=== PATIENT | female | born 1945 | race Caucasian/White ===

== ENCOUNTER 2025-06-19 11:38 | Emergency (ER) | payer MEDICARE, OTHER, SELFPAY ==
[2025-06-19 11:41] VITALS: BP 145/89; PULSE 65; RESP 18; TEMP 37.3; O2SAT 100
[2025-06-19 11:49] VITALS: PULSE 60; RESP 22; O2SAT 99; BMI 44.2
--- NOTE | 2025-06-19 12:12 | EKG_ITS ---
[facility] Test Date: 2025-06-19 Pat Name: CHARLEEN FINLEY Department: Room: - Gender: Female Career Development Coordinator/Teacher: : [id number] Requested By: Isis Marroquin Order Number: [id number] Reading MD: Isis Marroquin Measurements Intervals [place] Rate: 62 P: 28 CT: 188 QRS: 25 QRSD: 79 T: 40 QT: 390 QTc: 397 Interpretive Statements SINUS RHYTHM Compared to ECG 01/10/2018 13:21:48 Sinus bradycardia no longer present /store/S0/[id number].pdf
--- NOTE | 2025-06-19 13:18 | XR_ITS ---
Examination: AP chest single view TECHNIQUE: AP portable upright chest single view Date and time: June 19, 2025, 1343 hours, comparison August 10, 2022 INDICATIONS: Chest pain short of breath today FINDINGS: Normal heart size Moderate elevation right hemidiaphragm. Mild vascular congestion. No pneumonia or pulmonary edema Prominent osteopenia IMPRESSION: No pneumonia or pulmonary edema Mild vascular congestion
[2025-06-19 13:54] LABS: Basophils # (Auto) 0.0 Thou/mm3 (0.0-0.2); Basophils % (Auto) 1 % (0-2.5); Eosinophils # (Auto) 0.2 Thou/mm3 (0.0-0.5); Eosinophils % (Auto) 4 % (0-10); Hematocrit 25.3 % (36.0-46.0); Immature Granulocytes Auto 0.02 Thou/mm3 (0.00-0.00); Lymphocytes # (Auto) 0.7 Thou/mm3 (1.0-4.8); Lymphocytes % (Auto) 13 % (10-50); Mean Corpuscular HGB Conc 31.6 g/dl (31.0-37.0); Mean Corpuscular Hemoglobin 29.6 pg (25.0-35.0); Mean Corpuscular Volume 94 fL (80-100); Monocytes # (Auto) 0.4 Thou/mm3 (0.0-0.8); Monocytes % (Auto) 8 % (0-12); Neutrophils # (Auto) 3.9 Thou/mm3 (1.8-7.7); Neutrophils % (Auto) 74 % (37-80); Nucleated Red Blood Cell # 0.00 Thou/mm3 (0.00-0.00); Nucleated Red Blood Cell % 0 /100 WBC (0); Platelet Count 192 Thou/mm3 (140-440); RDW Standard Deviation 57.0 fL (36.4-46.3); Red Blood Count 2.70 Miln/mm3 (4.00-5.20); White Blood Count 5.3 Thou/mm3 (3.6-11.0)
[2025-06-19 13:58] LABS: Hemoglobin 8.0 g/dL (12.0-16.0)
[2025-06-19] MEDS: MethylPREDNISolone SOD SUCC 62.5 MG/ML 2ML VIAL 125 MG IVP (14:04)
[2025-06-19 14:09] LABS: B-Type Natriuretic Peptide 142 pg/mL (0-100)
[2025-06-19 14:12] LABS: Alanine Aminotransferase 17 U/L (10-49); Albumin, Serum 3.7 gm/dL (3.4-4.8); Albumin/Globulin Ratio 1.9 (1.2-2.2); Alkaline Phosphatase 86 U/L (46-116); Anion Gap 5 (7-16); Aspartate Amino Transferase 31 U/L (0-34); BUN/Creatinine Ratio 20 Ratio (12-20); Bilirubin,Total 0.3 mg/dL (0.3-1.2); Blood Urea Nitrogen 26 mg/dL (9-23); Calcium 8.9 mg/dL (8.3-10.6); Calcium (Corrected) 9.1 mg/dL (8.5-10.1); Carbon Dioxide 27.3 mMol/L (20.0-31.0); Chloride 107 mMol/L (98-107); Creatinine (Component) 1.3 mg/dL (0.6-1.3); Estimated Creatinine Clearance 43.2 mL/min (>60); Globulin 2.0 gm/dL (2.3-3.5); Glucose 93 mg/dL (74-106); Osmolality,Calculated 282 (275-295); Potassium 5.4 mMol/L (3.4-5.1); Sodium 139 mMol/L (136-145); Total Protein 5.7 gm/dL (5.7-8.2); Troponin I < 0.020 ng/mL (0.0-0.045); eGFR 42 See Note
--- NOTE | 2025-06-19 14:16 | EDNOTE_ITS ---
ED SOB =RME/HPI General Chief Complaint: Shortness of Breath/Dyspnea Stated Complaint: SOB Time Seen by Provider: 06/19/25 12:06 Arrival date/time: 06/19/25 11:38 Limitations: no limitations RME / HPI RME / HPI Narrative: 80 year old female with history of hypertension, COPD on 4L nasal cannula (at night), asthma, and chronic bilateral lower extremity edema presents to the ED BIBA from home for evaluation of acute onset shortness of breath today. States she had walked from the restroom to her room when she suddenly began to feel short of breath. Accompanied by palpitations. States she applied her home oxygen without relief, prompting calling 911. Per medics, on the 4L patient was saturating 90% and was increased to 6L with improvement to 99%. Denied any chest pain during that time. Patient additionally reports yesterday, after finding out her banking account had been hacked, she began to feel short of breath accompanied by palpitations that resolved after using her inhaler. Denies any recent illness, fevers, chills, cough, abdominal pain, n/v/d, or urinary symptoms. Patients daughter mentioned she did receive an IM injection of Rocephin 2 days ago for lower extremity skin infection. Wounds are followed by reeling machine operator. Telephone Sales Agent: Dr. Nash Related Data Home Medications ?Medication ?Instructions ?Recorded ?Confirmed ESTROGEN,CON/M-PROGEST ACET 20 mg PO DAILY ##0 4 01/10/18 (PREMPRO 0.625/2.5) Ezetimibe/Simvastatin * (VYTORIN 1 tab PO HS #0 tabs 0 05/27/14 01/10/18 1040 *) fluoxetine 20 mg capsule (Prozac) 20 mg PO BID #0 caps 05/27/14 01/10/18 loratadine 5 mg/5 mL oral solution 5 mg PO DAILY ##0 0 05/27/14 01/10/18 olmesartan 20 mg tablet (Benicar) 20 mg PO QDAY #0 tab s 05/27/14 01/10/18 pantoprazole 40 mg tablet,delayed 40 mg PO BID ##0 12/0501/10/18 release (Protonix) thyroid (pork) 90 mg tablet 90 mg PO QDAY ##30 4 01/10/18 ([place] Thyroid) tizanidine 4 mg tablet (Zanaflex) 4 mg PO QDAY #0 tabs 05/27/14 01/10/18 Previous Rx's ?Medication ?Instructions ?Recorded budesonide-formoterol HFA 160 2 inh inhalation Q12H #1 0.2 grams 01/10/18 mcg-4.5 mcg/actuation aerosol inhaler (Symbicort) albuterol sulfate 90 mcg/actuation 1 puff inhalation Q ID PRN 10/21/21 aerosol inhaler (ProAir HFA) shortness of breath or wh eezing #8.5 grams dexamethasone 6 mg tablet 6 mg PO QDAY #10 tabs (Decadron) Allergies Allergy/AdvReac Type Severity Reaction Status Date / Time morphine AdvReac Mild VOMIT Verified 08/10/22 19:09 Contrast Media Allergy Severe HIVES, Uncoded 08/10/22 19:09 DIFF BREATHING Review of Systems Review of Systems Systems Reviewed: All systems reviewed, normal except as documented Past Medical History Past Medical History CARDIAC: Positive Hypertension RESPIRATORY: Positive Respiratory Disorders, Asthma and Bronchitis Surgical History SURGICAL: Positive of Back Surgery and Hysterectomy Social History SMOKING STATUS: Never smoker ED Exam General Limitations: Present no limitations General appearance: Present alert and in no apparent distress Head Head exam: Present atraumatic Eye Eye exam: Present normal appearance, PERRL and EOMI ENT ENT exam: Present normal exam, normal oropharynx and mucous membranes moist Neck Neck exam: Present normal inspection, full ROM and trachea midline Chest Chest inspection: Present normal inspection and symmetric chest wall rise Respiratory Respiratory exam: Present normal lung sounds bilaterally; Absent respiratory distress, wheezes, stridor or accessory muscle use Cardiovascular Cardiovascular exam: Present regular rate, normal rhythm and normal heart sounds Abdominal Exam Abdominal exam: Present soft; Absent distention, tenderness, guarding or rebound Extremities Exam Extremities exam: Present full ROM and other (chronic bilateral lower extremity swelling that is symmetric from the knee below, wrapped in BILL wrap that the patient and family declined to have removed, both lower extremities have chronic venous stasis changes , 2+ DP pulses symmetric intact ) Neurological Exam Neurological exam: Present alert and oriented X3 Psychiatric Psychiatric exam: Present normal affect and normal mood Skin Skin exam: Present warm, dry, intact and normal color Course Quality Measures none Orders Category Date Time Status Bedside COVID-19 Antigen Test NOW Care 06/19/25 13:18 Completed Bedside Influenza A&B Antigen Test NOW Care 06/19/25 13:18 Completed EKG (ED ONLY) *Do not use* NOW Care 06/19/25 12:12 Completed CXR [XR chest 1V] Stat Exams 06/19/25 13:18 Completed EKG (ED Only) Stat Exams 06/19/25 12:12 Draft BNP [B-Type Natriuretic Peptide] Stat Lab 06/19/25 13:40 Completed CBC Stat Lab 06/19/25 13:40 Completed CMP [Comprehensive Metabolic Panel] Stat Lab 06/19/25 13:40 Completed Troponin I Stat Lab 06/19/25 13:40 Completed Furosemide Inj [Lasix Inj] Med 06/19/25 15:20 Discontinued 40 mg IVP X1 ONE Furosemide [Lasix Inj] Med 06/19/25 15:37 Discontinued 20 mg IVP X1 ONE HYDROcodone/APAP 10/325 [[place] 10/325] Med 06/19/25 15:17 Discontinued 1 tab PO X1 ONE MethylPREDNISolone.* [SoluMEDROL Inj] Med 06/19/25 13:18 Discontinued 125 mg IVP X1 ONE Vital Signs Vital signs: Vital Signs Temperature 99.1 F 06/19/25 11:41 Pulse Rate 65 06/19/25 11:41 Respiratory Rate 18 06/19/25 11:41 Blood Pressure 145/89 H 06/19/25 11:41 Pulse Oximetry (%) 100 06/19/25 11:41 Oxygen Delivery Method Nasal Cannula 06/19/25 11:41 Oxygen Flow Rate 4 06/19/25 11:41 Pulse ox is 98% on room air which is adequate. Shortness of Breath / Dyspnea MDM Narrative MDM Narrative:: Marcella Cortez am scribing for and in the presence of Dr. Clemons. Patient is a 80-year-old female with medical history notable for COPD, on oxygen at home as needed,chronic bilateral lower extremity edema that is in the emergency department concerns for acute episode of shortness of breath, and palpitations. Vital signs and exam as listed. Concern for ACS arrhythmia electrolyte abnormality CHF exacerbation viral syndrome among others. Ordered labs EKG chest x-ray. Patient right now is satting at 100% on room air, not in distress, not tachycardia, GCS15. Patient also concerned that she may have had an allergic reaction to her antibiotic that she received a few days ago, however, no rashes,sob,stridor, abd pain. Given her swelling of her legs I recommend b/l LE u/s however, patient and daughter declined exam of her lower extremities and did not want us to remove her wound care bandages that were placed by her providers HUMANITIES PROFESSOR. Declined further assessment of extremities. Advised patient and daughter that I have not ruled out life threatening pathology related to her LE's including DVT or necrotizing skin infections among others. EKG performed 12:22p sinus rhythm, nl int, no st elev or dep, not a cardiac alert, Labs with evidence of hemoglobin 8, however in in 2021 hemoglobin was 10. No recent assessments on file. Patient is not taking blood thinners, denies any hematemesis hemoptysis hematuria melena or bloody stools. No signs of bleeding. Patient has a potassium of 5.4, our upper limit of normal is 5.1. Will provide her medications for management of hyperkalemia. Creatinine is normal, BUN is 26. No transaminitis, troponin not elevated, BNP is 142, prior BNP is in the 70s. Chest x-ray with mild vascular congestion. Patient is COVID and flu negative. Given patient creatinine is not elevated and renal function is near her baseline we will offer her diuresis and also consult her commercial crabber. 3:20p I discussed renal labs, cxr, and presentation with commercial crabber Dr. Nash. He advised giving the patient 40mg Lasix and send home with instructions for her to follow up with him in office next week. 3:35p Discussed plan and discussion I had with patient's commercial crabber, with both the patient and her daughter.. Were in agreement with plan, however, requested a lower dose of lasix. As such 20mg of furosemide was provided. Patient data External records reviewed:: [facility] previous records and EMS form Clinical information provided by:: patient and EMS Social determinants that could affect healthcare access:: none Patient has the following chronic illnesses:: HTN, chronic bilateral lower extremity edema How is presenting disease/condition affected by chronic disease/condition?: exacerbated by Evaluation data The following diagnostics were reviewed and interpreted by me:: lab results, radiology exam(s) and EKG tracing(s) Lab and/or radiology exams considered but not ordered:: None Interpretation Summary: See MDM Medications / Prescriptions Medications or Prescriptions considered but not ordered:: None Medication administrations:: Medication Administration History Discontinued Medications Hydrocodone Bitart/Acetaminophen (Hydrocodone/Apap 10/325 Tab) 1 tab PO X1 ONE Stop: 06/19/25 15:18 Last Admin: 06/19/25 15:28 Dose: 1 tab Documented By: OA Furosemide (Furosemide Inj 10 Mg/Ml 4ml Vial) 40 mg IVP X1 ONE Stop: 06/19/25 15:21 Last Admin: 06/19/25 16:31 Dose: Not Given Documented By: DB Non-Admin Reason: Cancelled by Provider Furosemide (Furosemide Inj 10 Mg/Ml Vial 2 Ml) 20 mg IVP X1 ONE Stop: 06/19/25 15:38 Last Admin: 06/19/25 15:59 Dose: 20 mg Documented By: AA Methylprednisolone Sodium Succinate (Methylprednisolone Sod Succ 62.5 Mg/Ml 2ml Vial) 125 mg IVP X1 ONE Stop: 06/19/25 13:19 Last Admin: 06/19/25 14:04 Dose: 125 mg Documented By: FRED See above Consultations Consultation(s) initiated? (list below): Yes Consultation #1 (Physician, Specialty, Details): See MDM Diagnosis Shortness of Breath Differential Diagnosis: other (See MDM ) Most likely diagnosis given after review of the tests above:: Pulmonary vascular congestion Bilateral edema of lower extremity Admission Indicated Admission indicated?: not indicated Admission Request Was there a request for admission?: No Disposition Plan Disposition Plan: Discharge Discharge Attestation Discharge Attestation: The patient and all family members were given an opportunity to ask questions and understood the discharge instructions. Discharge instructions specifically effects, indications for sooner follow up or return to the emergency department, and the expected course of current diagnosis. Patient condition: Stable Discharge Plan Plan Patient Disposition: HOME (Self Care) Prescriptions/Referrals Prescriptions/Med Rec: No Action loratadine 5 MG/5 ML syrup 5 mg PO DAILY Qty: 0 tizanidine [Zanaflex] 4 MG tablet 4 mg PO QDAY Qty: 0 pantoprazole [Protonix] 40 MG tablet,delayed release (DR/EC) 40 mg PO BID Qty: 0 Patient Comments: TO SUPPRESS GASTRIC SECRETIONS fluoxetine [Prozac] 20 MG capsule 20 mg PO BID Qty: 0 olmesartan [Benicar] 20 MG tablet 20 mg PO QDAY Qty: 0 thyroid (pork) [[place] Thyroid] 90 MG tablet 90 mg PO QDAY Qty: 30 ESTROGEN,CON/M-PROGEST ACET (PREMPRO 0.625/2.5) 1 TAB tablet 20 mg PO DAILY Qty: 0 Ezetimibe/Simvastatin * (VYTORIN 10/40 *) 1 TAB tablet 1 tab PO HS Qty: 0 budesonide-formoterol [Symbicort] 160-4.5 mcg/actuation HFA aerosol inhaler 2 inh INH Q12H Qty: 10.2 0RF dexamethasone [Decadron] 6 mg tablet 6 mg PO QDAY Qty: 10 0RF albuterol sulfate [ProAir HFA] 90 mcg/actuation HFA aerosol inhaler 1 puff inhalation QID PRN (Reason: shortness of breath or wheezing) Qty: 8.5 0RF Referrals: Roverto Moncada, PONY RIDE ATTENDANT [Primary Care Provider] - In 1 week Problem List Clinical Impression: Pulmonary vascular congestion, Bilateral edema of lower extremity Patient/Caregiver Discharge Instructions Education Materials: Taking a Diuretic Additional Instructions: Please follow-up with your primary care doctor within 1 to 2 days as well as your commercial crabber in the upcoming week. We discussed your entire case, labs EKG chest x-ray and symptom presentation with your commercial crabber. He has recommended that we provide you a dose of diuresis here, and requested that you follow-up in his clinic next week. Print Language: Cambodian Stand Alone Forms: Sheila Carvajal Info., Patient Portal Info Letter
--- NOTE | 2025-06-19 14:16 | PD.EDSOB ---
ED SOB =RME/HPI General Chief Complaint: Shortness of Breath/Dyspnea Stated Complaint: SOB Time Seen by Provider: 06/19/25 12:06 Arrival date/time: 06/19/25 11:38 Related Data Home Medications ?Medication ?Instructions ?Recorded ?Confirmed ESTROGEN,CON/M-PROGEST ACET 20 mg PO DAILY ##0 05/27/14 01/10/18 (PREMPRO 0.625/2.5) Ezetimibe/Simvastatin * (VYTORIN 1 tab PO HS #0 tabs 05/27/14 01/10/18 10/40 *) fluoxetine 20 mg capsule (Prozac) 20 mg PO BID #0 caps 05/27/14 01/10/18 loratadine 5 mg/5 mL oral solution 5 mg PO DAILY ##0 05/27/14 01/10/18 olmesartan 20 mg tablet (Benicar) 20 mg PO QDAY #0 tabs 05/27/14 01/10/18 pantoprazole 40 mg tablet,delayed 40 mg PO BID ##0 05/27/14 01/10/18 release (Protonix) thyroid (pork) 90 mg tablet 90 mg PO QDAY ##30 05/27/14 01/10/18 ([place] Thyroid) tizanidine 4 mg tablet (Zanaflex) 4 mg PO QDAY #0 tabs 05/27/14 01/10/18 Previous Rx's ?Medication ?Instructions ?Recorded budesonide-formoterol HFA 160 2 inh inhalation Q12H #10.2 grams 01/10/18 mcg-4.5 mcg/actuation aerosol inhaler (Symbicort) albuterol sulfate 90 mcg/actuation 1 puff inhalation QID PRN 10/21/21 aerosol inhaler (ProAir HFA) shortness of breath or wheezing #8.5 grams dexamethasone 6 mg tablet 6 mg PO QDAY #10 tabs 10/21/21 (Decadron) Allergies Allergy/AdvReac Type Severity Reaction Status Date / Time morphine AdvReac Mild VOMIT Verified 08/10/22 19:09 Contrast Media Allergy Severe HIVES, Uncoded 08/10/22 19:09 DIFF BREATHING Course Orders Category Date Time Status Bedside COVID-19 Antigen Test NOW Care 06/19/25 13:18 Active Bedside Influenza A&B Antigen Test NOW Care 06/19/25 13:18 Completed EKG (ED ONLY) *Do not use* NOW Care 06/19/25 12:12 Completed CXR [XR chest 1V] Stat Exams 06/19/25 13:18 Completed EKG (ED Only) Stat Exams 06/19/25 12:12 Draft BNP [B-Type Natriuretic Peptide] Stat Lab 06/19/25 13:40 Completed CBC Stat Lab 06/19/25 13:40 Completed CMP [Comprehensive Metabolic Panel] Stat Lab 06/19/25 13:40 Completed Troponin I Stat Lab 06/19/25 13:40 Completed MethylPREDNISolone.* [SoluMEDROL Inj] Med 06/19/25 13:18 Discontinued 125 mg IVP X1 ONE Vital Signs Vital signs: Vital Signs Temperature 99.1 F 06/19/25 11:41 Pulse Rate 65 06/19/25 11:41 Respiratory Rate 18 06/19/25 11:41 Blood Pressure 145/89 H 06/19/25 11:41 Pulse Oximetry (%) 100 06/19/25 11:41 Oxygen Delivery Method Nasal Cannula 06/19/25 11:41 Oxygen Flow Rate 4 06/19/25 11:41 Shortness of Breath / Dyspnea MDM Narrative MDM Narrative:: Patient is a 80-year-old female with medical history notable for COPD, on oxygen at home as needed not consistently, bilateral lower extremity edema that is in the emergency department concerns for acute episode of shortness of breath, and palpitations. Vital signs and exam as listed. Concern for ACS arrhythmia electrolyte abnormality CHF exacerbation viral syndrome among others. Ordered labs EKG chest x-ray. Patient right now is satting at 100% on room air. Labs with evidence of hemoglobin 8, however in in 2021 hemoglobin was 10. Patient is not taking blood thinners, denies any hematemesis hemoptysis hematuria melena or bloody stools. No signs of bleeding anywhere. Patient has a potassium of 5.4, our upper limit of normal is 5.1. Will provide her medications for management of hyperkalemia. Creatinine is normal, BUN is 26. No transaminitis, troponin not elevated, BNP is 142, prior BNP is in the 70s. Chest x-ray with mild vascular congestion. Patient is COVID and flu negative. Given patient creatinine is not elevated and renal function is near her baseline we will offer her diuresis and also consult her senior air director. Medications / Prescriptions Medication administrations:: Medication Administration History Discontinued Medications Methylprednisolone Sodium Succinate (Methylprednisolone Sod Succ 62.5 Mg/Ml 2ml Vial) 125 mg IVP X1 ONE Stop: 06/19/25 13:19 Last Admin: 06/19/25 14:04 Dose: 125 mg Documented By: FRED Discharge Plan Prescriptions/Referrals Prescriptions/Med Rec: No Action loratadine 5 MG/5 ML syrup 5 mg PO DAILY Qty: 0 tizanidine [Zanaflex] 4 MG tablet 4 mg PO QDAY Qty: 0 pantoprazole [Protonix] 40 MG tablet,delayed release (DR/EC) 40 mg PO BID Qty: 0 Patient Comments: TO SUPPRESS GASTRIC SECRETIONS fluoxetine [Prozac] 20 MG capsule 20 mg PO BID Qty: 0 olmesartan [Benicar] 20 MG tablet 20 mg PO QDAY Qty: 0 thyroid (pork) [[place] Thyroid] 90 MG tablet 90 mg PO QDAY Qty: 30 ESTROGEN,CON/M-PROGEST ACET (PREMPRO 0.625/2.5) 1 TAB tablet 20 mg PO DAILY Qty: 0 Ezetimibe/Simvastatin * (VYTORIN 10/40 *) 1 TAB tablet 1 tab PO HS Qty: 0 budesonide-formoterol [Symbicort] 160-4.5 mcg/actuation HFA aerosol inhaler 2 inh INH Q12H Qty: 10.2 0RF dexamethasone [Decadron] 6 mg tablet 6 mg PO QDAY Qty: 10 0RF albuterol sulfate [ProAir HFA] 90 mcg/actuation HFA aerosol inhaler 1 puff inhalation QID PRN (Reason: shortness of breath or wheezing) Qty: 8.5 0RF Referrals: Roverto Moncada NP [Primary Care Provider] - In 1 week Patient/Caregiver Discharge Instructions Print Language: Icelandic
[2025-06-19 14:30] VITALS: BP 159/63; PULSE 63; RESP 17; TEMP 37.1; O2SAT 100
[2025-06-19 15:59] VITALS: BP 179/57; PULSE 72
[2025-06-19] MEDS: FUROSEMIDE INJ 10 MG/ML VIAL 2 ML 20 MG IVP (15:59)
[2025-06-19 18:34] VITALS: BP 124/82; PULSE 78
== END 2025-06-19 18:36 | disposition home or self-care (01) ==
PROVIDERS: Emergency Provider Emergency Medicine; PCP Nurse Practitioner Primary Care
DX: J81.1 Chronic pulmonary edema (principal); R00.2 Palpitations; J44.89 Other specified chronic obstructive pulmonary disease; I10 Essential (primary) hypertension; Z79.51 Long term (current) use of inhaled steroids
CPT/HCPCS: 36415; 71045; 80053; 83880; 84484; 85025; 87400; 87811; 93005; 99284; J1938; J2919; A9270